=== PATIENT | male | born 1930 | race Asian ===

== ENCOUNTER 2016-09-09 08:00 | Outpatient (CLI) | payer MEDICARE, MEDICAID | END 2016-09-09 08:01 | disposition home or self-care (01) | DX: I48.91 Unspecified atrial fibrillation (principal) ==

== ENCOUNTER 2016-09-09 08:00 | Outpatient (CLI) | payer MEDICARE, MEDICAID | END 2016-09-09 08:01 | disposition home or self-care (01) | DX: M10.9 Gout, unspecified (principal); E78.5 Hyperlipidemia, unspecified; I48.91 Unspecified atrial fibrillation; D64.9 Anemia, unspecified; I10 Essential (primary) hypertension ==

== ENCOUNTER 2016-10-28 12:16 | Outpatient (CLI) | payer MEDICARE, MEDICAID | END 2016-10-28 12:17 | disposition home or self-care (01) | DX: D53.9 Nutritional anemia, unspecified (principal); I48.91 Unspecified atrial fibrillation; I10 Essential (primary) hypertension ==

== ENCOUNTER 2016-11-04 17:04 | Outpatient (CLI) | payer MEDICARE, MEDICAID | END 2016-11-04 17:05 | disposition home or self-care (01) | DX: I48.91 Unspecified atrial fibrillation (principal) ==

== ENCOUNTER 2016-11-06 10:34 | Outpatient (CLI) | payer MEDICARE, MEDICAID | END 2016-11-06 23:59 | DX: I48.91 Unspecified atrial fibrillation (principal) ==

== ENCOUNTER 2016-11-13 11:40 | Outpatient (CLI) | payer MEDICARE, MEDICAID | END 2016-11-13 11:41 | disposition home or self-care (01) | DX: I48.91 Unspecified atrial fibrillation (principal) ==

== ENCOUNTER 2016-12-04 11:21 | Outpatient (CLI) | payer MEDICARE, MEDICAID | END 2016-12-04 11:22 | disposition home or self-care (01) | DX: I48.91 Unspecified atrial fibrillation (principal) ==

== ENCOUNTER 2016-12-08 10:36 | Outpatient (CLI) | payer MEDICARE, MEDICAID | END 2016-12-08 10:37 | disposition home or self-care (01) | DX: I48.91 Unspecified atrial fibrillation (principal) ==

== ENCOUNTER 2016-12-16 10:51 | Outpatient (CLI) | payer MEDICARE, MEDICAID | END 2016-12-16 23:59 | disposition home or self-care (01) | DX: I48.91 Unspecified atrial fibrillation (principal) ==

== ENCOUNTER 2017-01-14 09:12 | Outpatient (CLI) | payer MEDICARE, MEDICAID | END 2017-01-14 09:13 | disposition home or self-care (01) | DX: D53.9 Nutritional anemia, unspecified (principal); I10 Essential (primary) hypertension; I48.91 Unspecified atrial fibrillation ==

== ENCOUNTER 2017-01-14 09:14 | Outpatient (CLI) | payer MEDICARE, MEDICAID | END 2017-01-14 09:15 | disposition home or self-care (01) | DX: I48.91 Unspecified atrial fibrillation (principal) ==

== ENCOUNTER 2017-01-22 06:38 | Outpatient (CLI) | payer MEDICARE, MEDICAID | END 2017-01-22 06:39 | disposition home or self-care (01) | LOC: LAB.N 06:38 | PROVIDERS: ATTEND Nurse Practitioner Gerontology | DX: I48.91 Unspecified atrial fibrillation (principal) | CPT/HCPCS: 85610 ==

== ENCOUNTER 2017-01-23 08:07 | Outpatient (CLI) | payer MEDICARE, MEDICAID ==
[2017-01-23 14:39] LABS: ALBUMIN/GLOBULIN RATIO 1.4 (1.0-2.2); BILIRUBIN,TOTAL 0.6 mg/dL (0.2-1.0); BUN - BLOOD UREA NITROGEN 36 mg/dL (6-20); CALCIUM 9.1 mg/dL (8.5-10.3); CARBON DIOXIDE - CO2 22 mmol/L (21-32); CHLORIDE 111 mmol/L (101-111); CHOL/HDL RATIO 2.2 (<5.0); CHOLESTEROL 102 mg/dL; CREATININE 1.3 mg/dL (0.6-1.2); GFR - MDRD 52 (>89); GLUCOSE 93 mg/dL (70-100); HDL CHOLESTEROL 47 mg/dL; LDL/HDL RATIO 0.9 (<3.6); MAGNESIUM 2.1 mg/dL (1.7-2.8); POTASSIUM 4.3 mmol/L (3.5-5.0); SODIUM 140 mmol/L (135-145); TOTAL PROTEIN 7.1 g/dL (6.7-8.2); TRIGLYCERIDES 66 mg/dL; VLDL CHOLESTEROL 13 mg/dL
== END 2017-01-23 08:08 | disposition home or self-care (01) ==
LOC: LAB.N 08:07
PROVIDERS: ATTEND Specialist
DX: I48.0 Paroxysmal atrial fibrillation (principal); E78.5 Hyperlipidemia, unspecified; I10 Essential (primary) hypertension; I44.0 Atrioventricular block, first degree; R20.0 Anesthesia of skin; D64.9 Anemia, unspecified; I48.91 Unspecified atrial fibrillation
CPT/HCPCS: 36415; 80053; 80061; 83735; 85610

== ENCOUNTER 2017-01-23 08:10 | Outpatient (CLI) | payer MEDICARE, MEDICAID | END 2017-01-23 23:59 | disposition home or self-care (01) | LOC: LAB.N 08:10 | PROVIDERS: ATTEND Nurse Practitioner Gerontology | DX: I48.91 Unspecified atrial fibrillation (principal) | CPT/HCPCS: 85610 ==

== ENCOUNTER 2017-01-27 08:00 | Outpatient (CLI) | payer MEDICARE, MEDICAID | END 2017-01-27 08:01 | disposition home or self-care (01) | LOC: LAB.N 08:00 | PROVIDERS: ATTEND Nurse Practitioner Gerontology | DX: I48.91 Unspecified atrial fibrillation (principal) | CPT/HCPCS: 85610 ==

== ENCOUNTER 2017-02-05 08:00 | Outpatient (CLI) | payer MEDICARE, MEDICAID | END 2017-02-05 08:01 | disposition home or self-care (01) | LOC: LAB.N 08:00 | PROVIDERS: ATTEND Nurse Practitioner Gerontology | DX: I48.91 Unspecified atrial fibrillation (principal) | CPT/HCPCS: 85610 ==

== ENCOUNTER 2017-02-17 08:00 | Outpatient (CLI) | payer MEDICARE, MEDICAID | END 2017-02-17 08:01 | disposition home or self-care (01) | LOC: LAB.N 08:00 | PROVIDERS: ATTEND Nurse Practitioner Gerontology | DX: I48.91 Unspecified atrial fibrillation (principal) | CPT/HCPCS: 85610 ==

== ENCOUNTER 2017-02-23 10:50 | Outpatient (CLI) | payer MEDICARE, MEDICAID | END 2017-02-23 10:51 | disposition home or self-care (01) | LOC: LAB.N 10:50 | PROVIDERS: ATTEND Nurse Practitioner Gerontology | DX: I48.91 Unspecified atrial fibrillation (principal) | CPT/HCPCS: 85610 ==

== ENCOUNTER 2017-03-04 23:41 | Outpatient (CLI) | payer MEDICARE, MEDICAID | END 2017-03-04 23:42 | disposition home or self-care (01) | LOC: LAB.N 23:41 | PROVIDERS: ATTEND Nurse Practitioner Gerontology | DX: I48.91 Unspecified atrial fibrillation (principal) | CPT/HCPCS: 85610 ==

== ENCOUNTER 2017-03-11 09:06 | Outpatient (CLI) | payer MEDICARE, MEDICAID | END 2017-03-11 09:07 | disposition home or self-care (01) | LOC: LAB.N 09:06 | PROVIDERS: ATTEND Nurse Practitioner Gerontology | DX: I48.91 Unspecified atrial fibrillation (principal) | CPT/HCPCS: 85610 ==

== ENCOUNTER 2017-03-16 08:10 | Outpatient (CLI) | payer MEDICARE, MEDICAID | END 2017-03-16 08:11 | disposition home or self-care (01) | LOC: LAB.N 08:10 | PROVIDERS: ATTEND Nurse Practitioner Gerontology | DX: I48.91 Unspecified atrial fibrillation (principal) | CPT/HCPCS: 85610 ==

== ENCOUNTER 2017-03-23 11:04 | Outpatient (CLI) | payer MEDICARE, MEDICAID | END 2017-03-23 23:59 | disposition home or self-care (01) | LOC: LAB.N 11:04 | PROVIDERS: ATTEND Nurse Practitioner Gerontology | DX: I48.91 Unspecified atrial fibrillation (principal) | CPT/HCPCS: 85610 ==

== ENCOUNTER 2017-03-30 09:59 | Outpatient (CLI) | payer MEDICARE, MEDICAID | END 2017-03-30 10:00 | disposition home or self-care (01) | LOC: LAB.N 09:59 | PROVIDERS: ATTEND Nurse Practitioner Gerontology | DX: I48.91 Unspecified atrial fibrillation (principal) | CPT/HCPCS: 85610 ==

== ENCOUNTER 2017-04-01 08:36 | Outpatient (CLI) | payer MEDICARE, MEDICAID ==
[2017-04-01 13:21] LABS: ALBUMIN/GLOBULIN RATIO 1.1 (1.0-2.2); BILIRUBIN,TOTAL 1.5 mg/dL (0.2-1.0); CALCIUM 9.1 mg/dL (8.5-10.3); CREATININE 1.4 mg/dL (0.6-1.2); POTASSIUM 4.1 mmol/L (3.5-5.0); TOTAL PROTEIN 7.2 g/dL (6.7-8.2)
== END 2017-04-01 08:37 | disposition home or self-care (01) ==
LOC: LAB.N 08:36
PROVIDERS: ATTEND Physician Assistant
DX: I48.0 Paroxysmal atrial fibrillation (principal); R06.02 Shortness of breath
CPT/HCPCS: 36415; 80053; 83880

== ENCOUNTER 2017-04-07 08:00 | Outpatient (CLI) | payer MEDICARE, MEDICAID | END 2017-04-07 08:01 | disposition home or self-care (01) | LOC: LAB.N 08:00 | PROVIDERS: ATTEND Nurse Practitioner Gerontology | DX: I48.91 Unspecified atrial fibrillation (principal) | CPT/HCPCS: 85610 ==

== ENCOUNTER 2017-04-14 07:44 | Outpatient (CLI) | payer MEDICARE, MEDICAID | END 2017-04-14 07:45 | disposition home or self-care (01) | LOC: LAB.N 07:44 | PROVIDERS: ATTEND Nurse Practitioner Gerontology | DX: I48.91 Unspecified atrial fibrillation (principal) | CPT/HCPCS: 85610 ==

== ENCOUNTER 2017-04-17 09:12 | Outpatient (CLI) | payer MEDICARE, MEDICAID ==
[2017-04-17 13:16] LABS: ALBUMIN/GLOBULIN RATIO 1.1 (1.0-2.2); BILIRUBIN,TOTAL 0.7 mg/dL (0.2-1.0); CALCIUM 9.1 mg/dL (8.5-10.3); CREATININE 1.6 mg/dL (0.6-1.2); POTASSIUM 4.5 mmol/L (3.5-5.0); TOTAL PROTEIN 7.3 g/dL (6.7-8.2)
== END 2017-04-17 09:13 | disposition home or self-care (01) ==
LOC: LAB.N 09:12
PROVIDERS: ATTEND Physician Assistant
DX: R06.02 Shortness of breath (principal)
CPT/HCPCS: 36415; 80053; 83880

== ENCOUNTER 2017-04-21 08:00 | Outpatient (CLI) | payer MEDICARE, MEDICAID | END 2017-04-21 08:01 | disposition home or self-care (01) | LOC: LAB.N 08:00 | PROVIDERS: ATTEND Nurse Practitioner Gerontology | DX: I48.91 Unspecified atrial fibrillation (principal) | CPT/HCPCS: 85610 ==

== ENCOUNTER 2017-04-27 08:00 | Outpatient (CLI) | payer MEDICARE, MEDICAID | END 2017-04-27 08:01 | disposition home or self-care (01) | LOC: LAB.N 08:00 | PROVIDERS: ATTEND Nurse Practitioner Gerontology | DX: I48.91 Unspecified atrial fibrillation (principal) | CPT/HCPCS: 85610 ==

== ENCOUNTER 2017-05-05 08:00 | Outpatient (CLI) | payer MEDICARE, MEDICAID ==
[2017-05-05 14:38] LABS: ALBUMIN/GLOBULIN RATIO 1.2 (1.0-2.2); BILIRUBIN,TOTAL 0.7 mg/dL (0.2-1.0); CALCIUM 9.5 mg/dL (8.5-10.3); CREATININE 1.7 mg/dL (0.6-1.2); POTASSIUM 4.1 mmol/L (3.5-5.0); TOTAL PROTEIN 6.8 g/dL (6.7-8.2)
== END 2017-05-05 08:01 | disposition home or self-care (01) ==
LOC: LAB.N 08:00
PROVIDERS: ATTEND Nurse Practitioner Gerontology
DX: I48.1 Persistent atrial fibrillation (principal); R06.02 Shortness of breath; I48.91 Unspecified atrial fibrillation
CPT/HCPCS: 36415; 80053; 83880; 85610

== ENCOUNTER 2017-05-12 09:18 | Outpatient (CLI) | payer MEDICARE, MEDICAID | END 2017-05-12 09:19 | disposition home or self-care (01) | LOC: LAB.N 09:18 | PROVIDERS: ATTEND Nurse Practitioner Gerontology | DX: I48.91 Unspecified atrial fibrillation (principal) | CPT/HCPCS: 85610 ==

== ENCOUNTER 2017-05-18 08:45 | Outpatient (CLI) | payer MEDICARE, MEDICAID | END 2017-05-18 08:46 | disposition home or self-care (01) | LOC: LAB.N 08:45 | PROVIDERS: ATTEND Nurse Practitioner Gerontology | DX: I48.0 Paroxysmal atrial fibrillation (principal); I10 Essential (primary) hypertension; E78.5 Hyperlipidemia, unspecified; M25.561 Pain in right knee | CPT/HCPCS: 36415; 83735 ==

== ENCOUNTER 2017-05-26 09:21 | Outpatient (CLI) | payer MEDICARE, MEDICAID | END 2017-05-26 09:22 | disposition home or self-care (01) | LOC: LAB.N 09:21 | PROVIDERS: ATTEND Nurse Practitioner Gerontology | DX: I48.91 Unspecified atrial fibrillation (principal) | CPT/HCPCS: 85610 ==

== ENCOUNTER 2017-06-03 07:49 | Outpatient (CLI) | payer MEDICARE, MEDICAID | END 2017-06-03 07:50 | disposition home or self-care (01) | LOC: LAB.N 07:49 | PROVIDERS: ATTEND Nurse Practitioner Gerontology | DX: I48.91 Unspecified atrial fibrillation (principal) | CPT/HCPCS: 85610 ==

== ENCOUNTER 2017-06-08 08:00 | Outpatient (CLI) | payer MEDICARE, MEDICAID ==
[2017-06-08 19:15] LABS: CALCIUM 8.9 mg/dL (8.5-10.3); CREATININE 1.3 mg/dL (0.6-1.2); POTASSIUM 3.6 mmol/L (3.5-5.0)
== END 2017-06-08 08:01 | disposition home or self-care (01) ==
LOC: LAB.N 08:00
PROVIDERS: ATTEND Nurse Practitioner Gerontology
DX: I48.91 Unspecified atrial fibrillation (principal); I50.22 Chronic systolic (congestive) heart failure
CPT/HCPCS: 36415; 80048; 83735; 83880; 85610

== ENCOUNTER 2017-06-15 10:20 | Outpatient (CLI) | payer MEDICARE, MEDICAID | END 2017-06-15 10:21 | disposition home or self-care (01) | LOC: LAB.N 10:20 | PROVIDERS: ATTEND Nurse Practitioner Gerontology | DX: I48.91 Unspecified atrial fibrillation (principal) | CPT/HCPCS: 85610 ==

== ENCOUNTER 2017-06-22 13:18 | Outpatient (CLI) | payer MEDICARE, MEDICAID | END 2017-06-22 13:19 | disposition home or self-care (01) | LOC: LAB.N 13:18 | PROVIDERS: ATTEND Nurse Practitioner Gerontology | DX: I48.91 Unspecified atrial fibrillation (principal) | CPT/HCPCS: 85610 ==

== ENCOUNTER 2017-07-09 11:46 | Outpatient (CLI) | payer MEDICARE, MEDICAID | END 2017-07-09 11:47 | disposition home or self-care (01) | LOC: LAB.N 11:46 | PROVIDERS: ATTEND Nurse Practitioner Gerontology | DX: I48.91 Unspecified atrial fibrillation (principal) | CPT/HCPCS: 85610 ==

== ENCOUNTER 2017-07-13 09:22 | Outpatient (CLI) | payer MEDICARE, MEDICAID | END 2017-07-13 09:23 | disposition home or self-care (01) | LOC: LAB.N 09:22 | PROVIDERS: ATTEND Nurse Practitioner Gerontology | DX: I48.91 Unspecified atrial fibrillation (principal) | CPT/HCPCS: 85610 ==

== ENCOUNTER 2017-07-31 08:53 | Outpatient (CLI) | payer MEDICARE, MEDICAID | END 2017-07-31 08:54 | disposition home or self-care (01) | LOC: LAB.N 08:53 | PROVIDERS: ATTEND Nurse Practitioner Gerontology | DX: I48.91 Unspecified atrial fibrillation (principal) | CPT/HCPCS: 85610 ==

== ENCOUNTER 2017-08-06 15:06 | Outpatient (CLI) | payer MEDICARE, MEDICAID | END 2017-08-06 15:07 | disposition home or self-care (01) | LOC: LAB.N 15:06 | PROVIDERS: ATTEND Nurse Practitioner Gerontology | DX: I48.91 Unspecified atrial fibrillation (principal) | CPT/HCPCS: 85610 ==